=== PATIENT | female | born 1995 | race Caucasian/White ===

== ENCOUNTER 2021-05-06 00:41 | Emergency (ER) | payer MEDICAID, OTHER ==
[~2021-05-06] VITALS: Ht 162.6 cm; Wt 97.7 kg
[~2021-05-06 00:41] MED LIST: PRENATAL VITAMINS
[2021-05-06 02:30] VITALS: BP 110/71
[2021-05-06 03:08] LABS: APPEARANCE,URINE CLEAR (CLEAR); BILIRUBIN,URINE NEGATIVE (NEGATIVE); GLUCOSE, URINE (UA) NEGATIVE (NEGATIVE); KETONES,URINE NEGATIVE (NEGATIVE); LEUKOCYTE ESTERASE ,URINE NEGATIVE (NEGATIVE); NITRATE,URINE NEGATIVE (NEGATIVE); OCCULT BLOOD,URINE NEGATIVE (NEGATIVE); PROTEIN,URINE NEGATIVE (NEGATIVE); UROBILINOGEN,URINE 0.2 mg/dL (<=1.0)
== END 2021-05-06 04:06 | disposition home or self-care (01) ==
LOC: EMS 00:41
DX: Z34.92 Encounter for supervision of normal pregnancy, unspecified, second trimester (principal); Z3A.21 21 weeks gestation of pregnancy
CPT/HCPCS: 76805; 81003; 99284